=== PATIENT | female | born 1970 | race Caucasian/White ===

== ENCOUNTER 2016-08-27 13:02 | Emergency (ER) | payer OTHER ==
[~2016-08-27 13:02] MED LIST: ACETAMINOPHEN PO; ALBUTEROL17 GM INH; ARTIFICIAL TEAR15 M3 OP; BAYER ASPIRIN325 M1 PO; CERTAGEN PO; CIPRO PO; COUMADIN PO; COUMADIN5 MG PO; COUMADIN7.5 MG PO; DARVOCET-N 1001 TAB PO; FLAGYL PO; LACRI-LUBE NP OI1 UD OD; LOMOTIL TABLET1 TAB PO; LORTAB 5/500 TA1 TA2 PO; LOVENOX SUBQ; MEDROL PO; METRONIDAZOLE PO; MULTI VITAMIN1 EACH PO; PHENERGAN25 MG PO; PLAVIX PO; PRED-PAK PO; PREDNISONE PO; SKELAXIN PO; ULTRAM PO; VALTREX500 MG PO; ZOCOR PO; [UNRECOGNIZED DRUG - OTHER]
[2016-08-27] MEDS ORDERED: XARELTO20 MG PO (13:07)
== END 2016-08-27 13:47 | disposition left against medical advice (07) ==
LOC: SED 13:02
DX: M79.605 Pain in left leg (principal); Z86.718 Personal history of other venous thrombosis and embolism; F17.200 Nicotine dependence, unspecified, uncomplicated; Z88.0 Allergy status to penicillin
CPT/HCPCS: 99283